=== PATIENT | male | born 1945 | race Caucasian/White ===

== ENCOUNTER 2017-01-23 07:29 | Day surgery (SDC) | payer OTHER ==
--- NOTE | ~2017-01-23 | EGD ---
EGD REPORT [facility] [address] [address] NAME: OMAYRA ROGERS : [birth year] STATUS : REG [facility]#: [id number] AGE: 71 ADM/REG DATE : 01/23/17 MR#: [id number] REPORT SERV DATE: 01/23/17 DICTATED BY: DIEGO WAGNER DATE: 01/23/17 REPORT STATUS : Draft TRANSCRIB[facility] BY: [facility] DATE: 01/23/17 [facility] Center Patient Name: Omayra Rogers Date of : 1945 Attending MD: DIEGO WAGNER MD Procedure Date No Time: 01/23/2017 Procedure: Colonoscopy Indications: High risk colon cancer surveillance: Personal history of colonic polyps Referring MD: MARISSA RAHMAN Medicines: as per anesthesia Complications: No immediate complications. Procedure: Pre-Anesthesia Assessment: - ASA Grade Assessment: III - A patient with severe systemic disease. After I obtained informed consent, the scope was passed under direct vision. Throughout the procedure, the patient's blood pressure, pulse, and oxygen saturations were monitored continuously. The PCF [id number] was introduced through the anus and advanced to the cecum, identified by appendiceal orifice and ileocecal valve. The colonoscopy was performed without difficulty. The patient tolerated the procedure. The quality of the bowel preparation was fair. Findings: The perianal and digital rectal examinations were normal. A single small-mouthed diverticulum was found in the sigmoid colon. Internal hemorrhoids were found during endoscopy and were mild. Impression: - Diverticulosis in the sigmoid colon. - Internal hemorrhoids. Recommendation: - Repeat colonoscopy in 3 years for surveillance. Procedure Code(s): --- Professional --- 74021, Colonoscopy, flexible, proximal to splenic flexure; diagnostic, with or without collection of specimen(s) by brushing or washing, with or without colon decompression (separate procedure) Diagnosis Code(s): --- Professional --- K64.8, Other hemorrhoids K57.30, Diverticulosis of large intestine without perforation or abscess without bleeding EGD REPORT [facility] [address] [place] [address] NAME: OMAYRA ROGERS : [birth year] STATUS : REG [facility] PAT#: [id number] AGE: 71 ADM/REG DATE : 01/23/17 MR#: [id number] REPORT SERV DATE: 01/23/17 DICTATED BY: DIEGO WAGNER. DATE: 01/23/17 REPORT STATUS : Draft TRANSCRIBED BY: [employer] DATE: 01/23/17 Z86.010, Personal history of colonic polyps CPT copyright 2013 [employer]. All rights reserved. The codes documented in this report are preliminary and upon welder experimental review may be revised to meet current compliance requirements. DIEOG WAGNER MD 01/23/2017 10:31 AM This report has been signed electronically. Number of Addenda: 0 Note Initiated On: 01/23/2017 9:52 AM Scope Withdrawal Time 0 hours 14 minutes 17 seconds [address] [facility] [place] [address]
[~2017-01-23 07:29] MED LIST: ASAB PO; BYSTOLIC10 MG PO; BYSTOLIC5 MG PO; PRINZIDE1 TA1 PO; SYN.05 PO; ZESTRIL10 MG PO
== END 2017-01-23 23:59 | disposition home or self-care (01) ==
LOC: DMU 07:29
PROVIDERS: Internal Medicine Gastroenterology
PROC: 0DJD8ZZ Inspection of Lower Intestinal Tract, Via Natural or Artificial Opening Endoscopic (ICD-10-PCS; principal; 2017-01-23 09:30)
DX: Z12.11 Encounter for screening for malignant neoplasm of colon (principal); I10 Essential (primary) hypertension; K64.8 Other hemorrhoids; K57.30 Diverticulosis of large intestine without perforation or abscess without bleeding; Z86.010 Personal history of colon polyps; Z79.899 Other long term (current) drug therapy; E66.01 Morbid (severe) obesity due to excess calories; Z98.890 Other specified postprocedural states; Z85.46 Personal history of malignant neoplasm of prostate